=== PATIENT | female | born 1970 | race Caucasian/White ===

== ENCOUNTER → 2016-08-04 | Outpatient (CLI) | payer BC | END | disposition home or self-care (01) | LOC: RAD.S 13:44 | DX: R92.8 Other abnormal and inconclusive findings on diagnostic imaging of breast (principal); N60.01 Solitary cyst of right breast ==

== ENCOUNTER 2016-10-13 09:18 | Emergency (ER) | payer BC, SELFPAY ==
--- NOTE | 2016-10-31 08:17 | ER ---
ADMIT: 10/13/2016 RM/LOC: ER [facility] MR#: [id number] [facility] [address] [place], [place] [id number] MARTI JEANNETTE ORR [address] [facility] [address] [place], [place] [address] Emergency Room Report SEX: F AGE: 46 : 1970 DATE: 10/13/2016 ADDENDUM: This patient comes to the ER because she is having severe dizziness that started today. She states that she at times cannot walk because of the dizziness and also mentions that she has had a lot of stress. She does not speak Serbian, but comes in with her brothers. She is not very cooperative when we ask her to do things or even answering questions. According to her brothers, it is odd for her to not be able to walk, but they say she is under a lot of stress at this time. On physical exam, she has normal vital signs and her lungs are clear. She walked into the ER; however, when we try to get her to walk to the bathroom, she is too weak to do so. CBC and BMP were normal. Urinalysis was positive for nitrites. We did a CAT scan of her head, which was normal. Initially IV of normal saline was started. She was given Zofran, Valium, and meclizine, which she states did not help her at all. We then ordered an MRI of her head, which was also normal. I did speak with the patient and her brothers to let them know the results. She did walk out of the ER. I wrote a prescription for Valium and Bactrim for the urinary tract infection, and we will have them follow up with her doctor if not feeling better. Please see my T-sheet. BISI Ly / Sree Allison MD / jhonny JOB #: [id number] CC: Sree Allison MD, Attending Physician Rochelle Díaz, Family Physician
== END 2016-10-13 14:45 | disposition home or self-care (01) ==
LOC: ER 09:18
DX: N39.0 Urinary tract infection, site not specified (principal); R42 Dizziness and giddiness; E03.9 Hypothyroidism, unspecified; Z90.710 Acquired absence of both cervix and uterus; Z79.899 Other long term (current) drug therapy